=== PATIENT | female | born 1945 | race Caucasian/White ===

== ENCOUNTER 2017-07-08 18:02 | Emergency (ER) | payer MEDICARE ==
[2017-07-08] MEDS ORDERED: oxyCOD/ACETAMIN 5 MG/325 MG TABLET PO STA (18:35)
[2017-07-08] MEDS ORDERED: oxyCODONE/ACET 5/325 Prepack 4 PO STA (18:35)
--- NOTE | 2017-07-08 18:36 | ED Physician Documentation ---
PD HPI UPPER EXT INJURY - Stated complaint Stated Complaint: ARM INJURY - Chief complaint Chief Complaint: Ext Problem - History obtained from History obtained from: Patient - History of Present Illness Location: Other (Slip and mechanical fall this evening with her arm under her and injured her right wrist and forearm. No other injuries. Pain is severe. She felt a pop.) Review of Systems Constitutional: reports: Reviewed and negative Cardiac: reports: Reviewed and negative Respiratory: reports: Reviewed and negative PD PAST MEDICAL HISTORY - Past Medical History Past Medical History: No Cardiovascular: Hypertension Endocrine/Autoimmune: Type 2 diabetes - Past Surgical History Past Surgical History: No - Present Medications Home Medications: Ambulatory Orders Medication Instructions Recorded Confirmed Amlodipine Besylate 1 tab PO DAILY 07/08/17 07/08/17 Oxycodone HCl/Acetaminophen 1 - 2 tab PO Q4H PRN #20 tablet 07/08/17 [Percocet 5-325 mg Tablet] - Allergies Allergies/Adverse Reactions: Allergies Allergy/AdvReac Type Severity Reaction Status Date / Time No Known Drug Allergies Allergy Verified 07/08/17 18:24 - Social History Does the pt smoke?: No Smoking Status: Never smoker Does the pt drink ETOH?: Yes Does the pt have substance abuse?: No - Immunizations Immunizations are current?: Yes - POLST Patient has POLST: No PD ED PE NORMAL - Vitals Vital signs reviewed: Yes - General General: Alert and oriented X 3, No acute distress - Extremities Extremities: Other (There is deformity of the right wrist consistent with a Colles' fracture and some tenderness along the proximal forearm as well. She has normal cap refill and sensation throughout the hand.) - Neuro Neuro: Alert and oriented X 3, Normal speech - Psych Psych: Normal mood, Normal affect Results - Vitals Vitals: Vital Signs - 24 hr 07/08/17 07/08/17 07/08/17 18:13 19:15 19:46 Temperature 36.1 C L Heart Rate 73 80 75 Respiratory 20 20 16 Rate Blood Pressure 144/100 H 129/87 H O2 Saturation 100 99 07/08/17 07/08/17 07/08/17 19:51 19:56 20:01 Temperature Heart Rate 85 78 80 Respiratory 14 14 18 Rate Blood Pressure 133/83 H 141/92 H 120/77 O2 Saturation 93 94 99 07/08/17 07/08/17 07/08/17 20:15 20:30 20:52 Temperature Heart Rate 72 76 72 Respiratory 18 18 18 Rate Blood Pressure 143/90 H 169/96 H 146/98 H O2 Saturation 99 100 100 Oxygen O2 Source Room air Oxygen Flow Rate 2 - Rads (name of study) Right wrist and forearm x-rays Radiology: EMP read contemporaneously (Comminuted impacted and displaced distal radius fracture with an ulnar styloid fracture) Procedures - Splint (location) R arm Splint applied by: Physician, Tech Type of splint: Fiberglass, Long arm, Sugar tong Other: Patient tolerated well, No complications, Neurovascular intact, Sling provided - Reduction Body part reduced: Right, Wrist Fracture or dislocation: Fracture dislocation Anesthesia: Conscious sedation Reduction aftercare: NV intact - Procedural sedation Sedation prep: Informed consent, Time out completed, PE performed, AHA 1 - healthy Sedation medications: propofol (140mg total divided, 60mg, then 40mg then 40mg) Patient status during sedation: Responds to tactile, Vitals remained stable, Maintained airway Sedation recovery: Recovered uneventfully PD MEDICAL DECISION MAKING - ED course ED course: 71-year-old with isolated right wrist injury after a fall With a Colles' fracture requiring Reduction in the emergency department under sedation and splinting with significant improvement of the fracture appearance after reduction on repeat x-ray. The patient and family were counseled as to the diagnosis and need for follow- up. I counseled the patient with regard to signs and symptoms that would necessitate an urgent reevaluation in the emergency department. They understand they are welcome to return at any time if worse or if not improving as expected. This document was made in part using voice recognition software. While efforts are made to proofread this documents, sound alike and grammatical errors may occur. Departure - Departure Disposition: 01 Home, Self Care Clinical Impression: Colles' fracture of right radius Qualifiers: Encounter type: initial encounter Fracture type: closed Qualified Code(s): S52.531A - Colles' fracture of right radius, initial encounter for closed fracture Condition: Good Record reviewed to determine appropriate education?: Yes Instructions: ED Fx Forearm Radius Ulna Redu Requ Follow-Up: [facility] [Provider Group] - Within 1 week Prescriptions: Oxycodone HCl/Acetaminophen [Percocet 5-325 mg Tablet] 1 - 2 tab PO Q4H PRN #20 tablet PRN Reason: Pain Comments: Call the orthopedics office tomorrow for an appointment within the week. Keep the splint on and dry. Elevate, elevate, elevate. Do not drink or drive while taking narcotic pain medication. Note that many narcotic pain relievers also contain Tylenol/acetaminophen. Please ensure that your total dose of acetaminophen from all sources does not exceed 3 g (3000 mg) per day. You may get constipated while on this medication. Take a stool softener such as Colace twice a day while you are on it. Also add an [id number] laxative such as senna or MiraLAX on any day that you do not have a bowel movement. If you received a narcotic pain medication or sedative while in the emergency department, do not drive for the next 24 hours. Discharge Date/Time: 07/08/17 20:53
[2017-07-08] MEDS ORDERED: oxyCOD/ACETAMIN 5 MG/325 MG TABLET PO ONE (18:50)
[2017-07-08] MEDS ORDERED: oxyCODONE/ACET 5/325 Prepack 4 PO ONE (18:50)
[2017-07-08] MEDS ORDERED: HYDROmorphone 1 MG/ML SYRINGE IM STA (19:07)
[2017-07-08] MEDS ORDERED: HYDROmorphone 1 MG/ML SYRINGE IVP STA (19:12)
--- NOTE | 2017-07-08 19:36 | XRAY Preliminary Report ---
Exam: XR WRIST 3 VIEW RT IMPRESSION: 1. Comminuted, impacted, moderately displaced intra-articular distal radius fracture. 2. Nondisplaced ulnar styloid fracture. 3. Mild first CMC joint osteoarthritis. [facility] SITE ID: [id number]
--- NOTE | 2017-07-08 19:39 | XRAY Report ---
EXAM: RIGHT WRIST RADIOGRAPHY EXAM DATE: 07/08/2017 07:14 PM. CLINICAL HISTORY: Fall. Right wrist pain. COMPARISON: None. TECHNIQUE: 3 views. FINDINGS: Bones: Comminuted, impacted intra-articular distal radius fracture with moderate approximately 12 mm dorsal displacement of the distal fracture fragments and minimal dorsal angulation at the fracture si te. Nondisplaced ulnar styloid fracture. Joints: Normal alignment. Mild joint space loss and subchondral degenerative changes at the first CMC joint, compatible with osteoarthritis. Soft Tissues: Soft tissue swelling and deformity overlying the wrist. IMPRESSION: 1. Comminuted, impacted, moderately displaced intra-articular distal radius fracture. 2. Nondisplaced ulnar styloid fracture. 3. Mild first CMC joint osteoarthritis. [facility] Referring Provider Line: [phone] SITE ID: [id number]
--- NOTE | 2017-07-08 19:40 | XRAY Preliminary Report ---
Exam: XR FOREARM RT IMPRESSION: 1. Redemonstration of comminuted, impacted, dorsally displaced distal radius fracture and nondisplace d on the styloid fracture. 2. No proximal forearm fracture or malalignment. [facility] SITE ID: [id number]
[2017-07-08] MEDS ORDERED: HYDROcod/ACET 5/325 Prepack 6 PO ONE (19:42)
[2017-07-08] MEDS ORDERED: PROPOFOL 200 MG/20 ML VIAL IVP ONE (19:42)
--- NOTE | 2017-07-08 19:42 | XRAY Report ---
EXAM: RIGHT FOREARM RADIOGRAPHY EXAM DATE: 07/08/2017 07:14 PM. CLINICAL HISTORY: Fall. Right arm injury. COMPARISON: None. TECHNIQUE: 2 views. FINDINGS: Bones: Redemonstration of comminuted, impacted, dorsally displaced intra-articular distal radius frac ture and nondisplaced ulnar styloid fracture. No proximal forearm fracture. Joints: Normal alignment at the wrist and elbow as visualized. Soft Tissues: Swelling overlying the wrist. IMPRESSION: 1. Redemonstration of comminuted, impacted, dorsally displaced distal radius fracture and nondisplace d on the styloid fracture. 2. No proximal forearm fracture or malalignment. [facility] Referring Provider Line: [phone] SITE ID: [id number]
[2017-07-08] MEDS ORDERED: PROPOFOL 200 MG/20 ML VIAL IVP STA (19:54)
--- NOTE | 2017-07-08 20:30 | XRAY Preliminary Report ---
Exam: XR FOREARM RT IMPRESSION: 1. Acute, impacted, intra-articular fracture of the distal right radius metaphysis with 5 mm of resid ual lateral displacement of the distal fragment. 2. Mildly displaced ulna styloid fracture. 3. Soft tissue swelling. [facility] SITE ID: [id number]
[2017-07-08 20:53] VITALS: BP 146/98
--- NOTE | 2017-07-08 20:56 | XRAY Report ---
EXAM: RIGHT FOREARM RADIOGRAPHY EXAM DATE: 07/08/2017 08:12 PM. CLINICAL HISTORY: Post reduction. COMPARISON: 07/08/2017. TECHNIQUE: 2 views. FINDINGS: Bones: Redemonstration of a comminuted, impacted distal right radius metaphyseal fracture with 5 mm o f residual lateral displacement of the distal fragment. Intra-articular extension is again identified . Displaced ulnar styloid fracture with 2 mm of residual lateral displacement of the ulnar styloid. Joints: Degenerative changes are noted in the first carpometacarpal joint. Scapholunate interval nena ures 2.5 mm. Soft Tissues: Large amount of right wrist swelling noted. IMPRESSION: 1. Acute, impacted, intra-articular fracture of the distal right radius metaphysis with 5 mm of resid ual lateral displacement of the distal fragment. 2. Mildly displaced ulnar styloid fracture. 3. Soft tissue swelling. [facility] Referring Provider Line: [phone] SITE ID: [id number]
== END 2017-07-08 20:53 | disposition home or self-care (01) ==
LOC: ED 18:02
DX: S52.531A Colles' fracture of right radius, initial encounter for closed fracture (principal); S52.614A Nondisplaced fracture of right ulna styloid process, initial encounter for closed fracture; W19.XXXA Unspecified fall, initial encounter; I10 Essential (primary) hypertension; E11.9 Type 2 diabetes mellitus without complications
CPT/HCPCS: 25560; 73090; 73110; 94770; 99283; 99284; A9270

== ENCOUNTER 2023-07-05 10:31 | Outpatient (CLI) | payer MEDICARE ==
[2023-07-05 14:47] LABS: BASOPHILS # (AUTO) 0.1 10^3/uL (0.0-0.1); BASOPHILS % (AUTO) 1.2 %; EOSINOPHILS # (AUTO) 0.1 10^3/uL (0.0-0.7); EOSINOPHILS % (AUTO) 1.9 %; HCT - HEMATOCRIT 37.9 % (37.0-47.0); LYMPHOCYTES % (AUTO) 42.7 %; MEAN CORPUSCULAR HGB CONC 31.7 g/dL (32.0-36.0); MEAN CORPUSCULAR VOLUME 88.3 fL (81.0-99.0); MEAN PLATELET VOLUME 9.9 fL (7.9-10.8); MONOCYTES # (AUTO) 0.4 10^3/uL (0.0-1.0); MONOCYTES % (AUTO) 5.2 %; NEUTROPHILS # (AUTO) 3.4 10^3/uL (1.5-6.6); NEUTROPHILS % (AUTO) 48.7 %; PLT - PLATELET COUNT 276 10^3/uL (130-450); RED BLOOD COUNT 4.29 10^6/uL (4.20-5.40); RED CELL DISTRIBUTION WIDTH 14.6 % (12.0-15.0); WHITE BLOOD COUNT 6.9 x10^3/uL (4.8-10.8)
[2023-07-05 15:11] LABS: ESTIMATED AVERAGE GLUCOSE 197 mg/dL (70-100); HEMOGLOBIN A1c% 8.5 % (4.27-6.07)
[2023-07-05 15:14] LABS: ALBUMIN 4.7 g/dL (3.2-5.5); ALBUMIN/GLOBULIN RATIO 1.3 (1.0-2.2); ALKALINE PHOSPHATASE 55 IU/L (42-121); ALT ALANINE AMINOTRANSFERASE 22 IU/L (10-60); AST ASPARTATE AMINOTRANSFERASE 23 IU/L (10-42); BILIRUBIN,TOTAL 0.5 mg/dL (0.2-1.0); BUN - BLOOD UREA NITROGEN 28 mg/dL (6-20); CARBON DIOXIDE - CO2 21 mmol/L (21-32); CHLORIDE 105 mmol/L (101-111); CHOL/HDL RATIO 7.1 (<4.4); CHOLESTEROL 269 mg/dL; GFR - MDRD 54 (>89); GLUCOSE 215 mg/dL (74-104); HDL CHOLESTEROL 38 mg/dL; LDL CHOLESTEROL,CALCULATED 177 mg/dL; LDL/HDL RATIO 4.7 (<4.4); POTASSIUM 4.3 mmol/L (3.5-4.5); SODIUM 136 mmol/L (135-145); TOTAL PROTEIN 8.2 g/dL (6.4-8.9); TRIGLYCERIDES 269 mg/dL (48-352); VLDL CHOLESTEROL 54 mg/dL
[2023-07-05 15:19] LABS: THYROID STIMULATING HORMONE 1.95 uIU/mL (0.34-5.60)
--- NOTE | 2023-07-05 15:34 | XRAY Report ---
PROCEDURE: Lumbar Spine 2 View INDICATIONS: LOW BACK PAIN TECHNIQUE: 2 views of the lumbar spine were acquired. COMPARISON: None. FINDINGS: Bones: 5 [id number] vertebrae are present. There is normal bony alignment. No acute vertebral body compression fractures. No suspicious bony lesions. Moderate multilevel lumbar spondylosis wit h degenerative endplate changes, endplate osteophyte formation, and multilevel facet arthropathy. Fin dings are most pronounced at L4-5 and L5-S1. Soft tissues: Overlying bowel gas pattern is normal. No suspicious soft tissue calcifications. IMPRESSION: Lumbar spine without acute osseous abnormalities. Moderate multilevel lumbar spondylosis most pronounced at L4-5 and L5-S1. Reviewed by: Corbin Guerrero MD on 07/05/2023 3:32 PM PST Approved by: Corbin Guerrero MD on 07/05/2023 3:32 PM PST Station ID: [id number]
== END 2023-07-05 10:32 | disposition home or self-care (01) ==
LOC: DI.S 10:31
PROVIDERS: ATTEND Physician Assistant Medical
DX: M47.816 Spondylosis without myelopathy or radiculopathy, lumbar region (principal); M47.817 Spondylosis without myelopathy or radiculopathy, lumbosacral region; Z13.9 Encounter for screening, unspecified
CPT/HCPCS: 36415; 80053; 80061; 83036; 83721; 84443; 85025